=== PATIENT | male | born 1940 | race Caucasian/White ===

== ENCOUNTER → 2016-11-16 | Outpatient (CLI) | payer OTHER | LOC: GIMAGING 11:24 | PROVIDERS: ATTEND Nurse Practitioner Family | DX: R05 Cough (principal); R06.02 Shortness of breath | CPT/HCPCS: 71020-PO ==

== ENCOUNTER → 2016-12-14 | Outpatient (CLI) | payer OTHER | LOC: GIMAGING 11:16 | PROVIDERS: ATTEND Registered Nurse | DX: J18.1 Lobar pneumonia, unspecified organism (principal) | CPT/HCPCS: 71020-PO ==